=== PATIENT | female | born 1995 | race Caucasian/White ===

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

== ENCOUNTER 2018-07-15 16:24 | Observation (INO) | payer OTHER ==
[~2018-07-15] VITALS: Ht 154.9 cm; Wt 73.6 kg
[2018-07-15 19:39] VITALS: BP 109/67
[2018-07-15] MEDS ORDERED: PNV11TAB PO (19:40)
== END 2018-07-15 20:15 | disposition home or self-care (01) ==
LOC: EMS 16:25 → 4S 16:35 → INTOOBSV 17:42
PROVIDERS: ADMIT Obstetrics & Gynecology; ATTEND Obstetrics & Gynecology
DX: O99.89 Other specified diseases and conditions complicating pregnancy, childbirth and the puerperium (principal); M54.5 Low back pain; Z3A.22 22 weeks gestation of pregnancy
CPT/HCPCS: 81002; 99281; G0378

== ENCOUNTER 2022-01-18 16:02 | Emergency (ER) | payer OTHER ==
[~2022-01-18] VITALS: Ht 157.5 cm; Wt 75.9 kg
[~2022-01-18 16:02] MED LIST: PNV11TAB PO
[2022-01-18] MEDS ORDERED: GuaiFENesin/D-METHORPHAN [SUGAR-FREE] 200-20MG/10 ML SYRUP UDCUP PO ONE (16:45)
[2022-01-18] MEDS ORDERED: ACETAMINOPHEN 500 MG TABLET PO ONE (16:45)
[2022-01-18 16:48] LABS: COVID AG,FIA SOURCE NASOPHARYNGEAL
[2022-01-18 17:07] LABS: INFLUENZA TYPE A NEGATIVE FOR TYPE A (NEGATIVE); INFLUENZA TYPE B NEGATIVE FOR TYPE B (NEGATIVE)
[2022-01-18] MEDS ORDERED: ACET-66 PO (17:36)
[2022-01-18] MEDS ORDERED: GUAIFDM PO (17:36)
[2022-01-18 17:52] VITALS: BP 124/70
== END 2022-01-18 17:53 | disposition home or self-care (01) ==
LOC: EMS 16:04
DX: J06.9 Acute upper respiratory infection, unspecified (principal); H92.03 Otalgia, bilateral; Z20.822 Contact with and (suspected) exposure to COVID-19; Z98.890 Other specified postprocedural states
CPT/HCPCS: 87804; 99283